=== PATIENT | female | born 1955 | race Caucasian/White ===

== ENCOUNTER 2024-08-12 11:02 | Emergency (ER) | payer SELFPAY ==
[2024-08-12 11:07] VITALS: BP 168/101
--- NOTE | 2024-08-12 11:38 | ED.GENMED ---
History of Present Illness
General
Chief Complaint: Fall
Source: patient
Exam Limitations: none
Time Seen by Provider: 08/12/24 11:12
Nursing documentation reviewed up to this point in time: agreed with
History of Present Illness
History of Present Illness:
This is a 69-year-old female with no past medical history who presents emergency department today with left ankle pain left lower leg pain following a fall. Patient reports that 5 days ago, she was walking up her stairs and went to go adjust the
dog he when she slipped and fell onto her left side. Patient believes that she may have twisted her ankle. Patient states that she was able to get up on her own and walk into her bedroom and rest. Patient states that since the injury, she has had
a lot of pain with weightbearing. She states that she started to have swelling around the left knee and bruising on the lower leg. Patient reports that she has been using her hiking stick to get around as well as her friend's crutches. Patient
denies any use of blood thinners. Patient denies any head strike. Patient denies any loss of consciousness. Patient Nuys any neck pain. Patient denies any paresthesias in her left lower leg. Patient declining any medication for pain at this time
Phy Exam
Physical Exam
Physical Exam:
General: Patient is well appearing and in no acute distress; non-toxic
Skin: Warm and dry, no rashes or lesions
Head: Normocephalic, atraumatic
Eyes: Sclera non-icteric. EOMs intact.
Cardiac: Regular rate
Peripheral Vascular: 2+ dorsalis pedis and posterior tibial pulses bilaterally
Pulm: Normal respiratory effort
Musculoskeletal: Supra patellar swelling noted over the left, negative anterior drawer testing, negative Abdoulaye's.. Full range of motion of bilateral lower extremities. No laxity with varus valgus stress of the left ankle. Bony tenderness
palpation of the left ankle or left metatarsals. 5/5 strength in bilateral lower extremities.
Neuro: CN II-XII intact, no focal neurologic deficits.
Psychiatric: Appropriate mood and affect.
Course
Orders/Labs/Results
Orders:
Orders
08/12/24 11:04
CR Knee - Left 4 Or More View* Urgent
Comment:
Reason For Exam: pain
Tib/Fib, Left 2 View [CR Leg Tibia/fibula Left 2 Vw] Urgent
Comment:
Reason For Exam: pain
08/12/24 11:05
Ankle, left 3 view CR [CR Ankle - Left Min 3 Views ] Urgent
Comment:
Reason For Exam: pain
08/12/24 13:20
Lower Ext Left wo Contrast CT [CT Lower Ext W/o Iv Cont Lt] Urgent
Comment:
Reason For Exam: left knee pain
08/12/24 13:21
Knee Immobilizer Left-Treatmen ONCE
Vital Signs
Initial and Last Documented VS:
Initial Vital Signs
Temp Pulse Resp BP Pulse Ox
98.4 F 102 18 168/101 96
08/12/24 11:07 08/12/24 11:07 08/12/24 11:07 08/12/24 11:07 08/12/24 11:07
Last Documented Vital Signs
Temp Pulse Resp BP Pulse Ox
98.4 F 74 16 135/75 98
08/12/24 11:07 08/12/24 15:56 08/12/24 15:56 08/12/24 15:56 08/12/24 14:42
MDM/Problems Addressed
Differential Diagnosis Includes:
Differentials include knee contusion, meniscal injury, ACL sprain, tibial plateau fracture, ankle sprain
MDM/Problems Addressed:
69-year-old female presents emergency department today with concerns of left lower leg and ankle pain following a fall. She is able to ambulate with the help of her hiking stick. She does not take any blood thinners she denies any head strike any
loss of consciousness. Will send off for x-rays.
X-rays reveal comminuted fracture of the distal fibula extending to the lateral tibial plateau with no dislocation. Reviewed case with orthopedics attending who recommends CAT scan for further evaluation, straight leg knee immobilizer, follow-up
and nonweightbearing. Did discuss the need for an on weightbearing with patient. Patient states that she live alone but her friends have been over to help her and she was given crutches. Patient states that she feels safe to go home. Did offer
case management to set up possible home nursing care however patient is declining this at this time. Patient stable for discharge.
Chronic conditions affecting care:
n/a
Acute Exacerbation and/or Progression of Chronic Illness:
n/a
*Pulse Oximetry
Patient hypoxic: no
*Critical Care Note
Total Time (30-74mins, 75-104mins- exclusive of procedures): Not Applicable
Data Reviewed
Review of Other/Old Records Reveals: Records (No previous ER physician documentation to review) and Discharge Summary (No discharge summaries in [facility]
Source: patient and records
ED Attending Note
-
Portions of this chart may have been created with voice recognition software.� Occasional wrong word or��sound alike� substitutions may have occurred due to the inherent limitations of voice recognition software.
Discharge Plan
Departure
Patient Disposition: Home (Routine Discharge)
Date of Disposition: 08/12/24
Time of Disposition: 15:25
Patient with high blood pressure during this ER visit?: Yes
Condition: Good
Discharge Problem:
Fracture of proximal end of left tibia, Closed fracture of tibial plateau
Instructions: Lower leg fracture, Knee Immobilizer (DC), BLOOD PRESSURE
Referrals:
J Carlos Rosas MD [Active] - Call in 1-3 days for appt
NONE,* [Family Provider] -
Activity Restrictions/Additional Instructions:
Please call the attached number to schedule an appointment to see orthopedics as an outpatient. Please call the office Wednesday morning.
Please keep your knee immobilizer on and please do not bear weight on the affected leg.
PLEASE RETURN TO THE EMERGENCY DEPARTMENT SHOULD YOU DEVELOP CHEST PAIN, SHORTNESS OF BREATH, FEVERS OR CHILLS, LOSS OF SENSATION IN THE LOWER EXTREMITY, AN ACUTE WORSENING OF YOUR PAIN, PALLOR IN YOUR LOWER EXTREMITY, OR ANY OTHER SIGNS OR SYMPTOMS
CONCERNING TO YOU.
Interventions
Interventions:
*Risk Screen - Suicide Last Done: 08/12/24 11:07
*General Assessment Last Done: 08/12/24 11:07
*Neglect/Abuse Screening Last Done: 08/12/24 11:07
ED- Fall Risk Assessment Last Done: 08/12/24 12:10
*ED COVID-19 Vaccine History Last Done: 08/12/24 12:09
*Nursing Disposition Last Done: 08/12/24 15:56
ED-Musculoskeletal Assessment Last Done: 08/12/24 12:09
ED- Neurological Assessment Last Done: 08/12/24 12:09
ED-Skin Assessment Last Done: 08/12/24 12:09
Discharge Date and Time
Discharge Date/Time: 08/12/24 15:59
Print Language: FRENCH
[2024-08-12 14:42] VITALS: BP 124/79
[2024-08-12 15:56] VITALS: BP 135/75
== END 2024-08-12 15:59 | disposition home or self-care (01) ==
LOC: EMR 11:02
PROVIDERS: EMERGENCY PHYSICIAN Emergency Medicine
DX: S82.142A Displaced bicondylar fracture of left tibia, initial encounter for closed fracture (principal); W10.8XXA Fall (on) (from) other stairs and steps, initial encounter
CPT/HCPCS: 29505; 99284; 73564; 73590; 73610; 73700